=== PATIENT | male | born 1990 | race Caucasian/White ===

== ENCOUNTER 2016-06-10 03:55 | Emergency (ER) | payer OTHER ==
[~2016-06-10] VITALS: Ht 177.8 cm; Wt 118.2 kg
[2016-06-10 03:59] VITALS: BP 160/97; PULSE 74; RESP 15; O2SAT 99
[2016-06-10 04:06] VITALS: BP 160/97; PULSE 74; RESP 15; O2SAT 99
--- NOTE | 2016-06-10 04:11 | ED.REPORT ---
HPI-Eye Problem Date of Service Jun 10, 2016 ED Provider: Dr. Julián Roy MD A 25 year old male with a history of hypertension and asthma presents to the ED complaining of left eye itching and swelling that began just prior to arrival. Patient states that he woke up with sudden onset of irritation in his eye. He has had some recent exposure to dust but denies any recent injury to his eye. Patient denies any contact lens use. Nursing Notes Stated Complaint: LEFT EYE IRRITATION Chief Complaint: Eye Nursing Notes Reviewed: Yes Allergies: Coded Allergies: Sulfa (Sulfonamide Antibiotics) (Verified Allergy, Severe, anaphylaxis, ) General Time Seen by MD: 04:11 Chief Complaint Left eye affected Hx Obtained From: Patient Arrived By: Walk-in Sudden in Onset?: Yes Onset Occurred: 5 - 8 hours ago Symptom Duration: Since onset Progression Since Onset: Unchanged Location: : Eye left Quality: Itching Radiation: Does not radiate Severity: Current: Mild Severity: Maximum: Moderate Pertinent Negative: Pt denies other symptoms Related History: Denies: Contact lens use Recent Healthcare: No recent doctor visit, No recent hospitalization Past Medical History Past Medical History Reports: Asthma, Hypertension Past Surgical History None reported Smoking History Never Smoker Social History Alcohol Use: "Social" Drug Use: THC Other Social History: Good social support, Local resident Ambulatory Status Independent Review of Systems Constitutional: Denies: Chills, Fever Eyes: Reports: Discharge left, Eye pain left, Redness left (Swelling) Neurologic: Denies: Change LOC Complete sys rev & neg: except as marked. Respiratory: Denies: Shortness of breath Cardiovascular: Denies: Chest pain GI: Denies: Abdominal pain, Nausea, Vomiting Physical Exam Initial Vital Signs Vital Signs (First) Date Time Temp Pulse Resp B/P Pulse Ox O2 Delivery O2 Flow Rate FiO2 06/10/16 03:59 36.2 74 15 160/97 99 Room Air Initial VS: Reviewed Neck: Supple, Non-tender, Full range of motion Extremities: Vascular intact, Neuro intact, No swelling, No tenderness Skin: Warm, Dry, No cyanosis Neurologic: Alert, Oriented, Nonfocal Psychiatric: Mood/affect normal, Behavior normal, Normal thought content Head / Eyes: Atraumatic, Normocephalic, PERRL Conjunctiva / Sclera: Positive: Discharge L... (Purulent discharge in conjunctivitis ) HEAD/EYES: No evidence of foreign body No evidence of corneal abrasion Lashes are not glued shut Fluorescein negative No dendrite No herpes General/Constitutional: Awake, Alert, No acute distress ENT: Atraumatic, Airway patent Re-Eval/Medical Decision Med Decision/Clinical Course 25-year-old awoke with eye discharge and irritation. Fluoroscopy is negative for dendrites and negative for obvious abrasion. 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 No foreign material seen, but numerous mucus threads are noted, suggesting small grit foreign bodies. Begun with Cipro drops every 2 hours while awake. Discharged in stable condition. Follow up with eye doctor or prompt return if not improving Re-Evaluation/Progress : Time of Eval: 04:30 Patient Status: Condition improved Re-Evaluation/Progress Note: Patient is rechecked. He is informed of his results and diagnosis. All questions are addressed. He understands and agrees with the treatment plan. Counseled Regarding: Diagnosis, Need for follow-up, When/why to return to ED Discharge & Departure Primary Impression: Conjunctivitis Conjunctivitis type: unspecified Laterality: left Qualified Code: H10.9 - Unspecified conjunctivitis Disposition: Home Discharge Condition All VS Reviewed: Yes Condition: Stable Patient Instructions: Conjunctivitis (ED) Additional Instructions: Apply Cipro one drop every two hours during the day so seven or so doses daily. To that for four days. Follow-up with your doctor in the office. Return if any immediate issues. 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 I, Dr. Roy personally performed the history, physical exam and medical decision-making; I reviewed and confirmed the accuracy of the information in the transcribed note. Signed by: Junior Shetty, 06/10/16 0500. Julián Roy MD Jun 10, 2016 04:11 ED [facility] Jun 10, 2016 04:38
[2016-06-10] MEDS ORDERED: Tetracaine 0.5% 4 mL Ophthalmic Solution LEFT_EYE ONE (04:25)
[2016-06-10] MEDS ORDERED: Fluorescein 0.6 mg Ophthalmic Strip LEFT_EYE ONE (04:25)
[2016-06-10] MEDS ORDERED: 0.9% Sodium Chloride Inhalation Solution ONE (04:26)
[2016-06-10] MEDS ORDERED: Fluorescein 0.6 mg Ophthalmic Strip ONE (04:26)
[2016-06-10] MEDS ORDERED: Ciprofloxacin 0.3% 5 mL Ophthalmic Solution LEFT_EYE ONE (04:40)
[2016-06-10] MEDS ORDERED: Ciprofloxacin 0.3% 5 mL Ophthalmic Solution LEFT_EYE SCH ×2 (04:45)
[2016-06-10 05:20] VITALS: BP 127/65; PULSE 81; RESP 17; O2SAT 96
== END 2016-06-10 05:21 | disposition home or self-care (01) ==
LOC: SED 03:55
DX: H10.9 Unspecified conjunctivitis (principal); I10 Essential (primary) hypertension; J45.909 Unspecified asthma, uncomplicated; Z88.2 Allergy status to sulfonamides